=== PATIENT | male | born 1980 | race Caucasian/White ===

== ENCOUNTER 2018-10-12 08:05 | Emergency (ER) | payer BC ==
--- NOTE | 2018-10-12 08:41 | EDM.PDOC ---
ED HPI GENERAL MEDICAL PROBLEM - General Chief Complaint: ENT Problem Stated Complaint: SWOLLEN THROAT Time Seen by Provider: 10/12/18 08:22 Source of Information: Reports: Patient, RN Notes Reviewed - History of Present Illness INITIAL COMMENTS - FREE TEXT/NARRATIVE: 38-year-old male has been having some left lower jaw and dental discomfort for the past 2 or 3 days. States he awakened this morning with sore throat swelling of his left lower jaw area of his mouth and also under the left side of his tongue. He has had no nasal or sinus congestion. He is not coughing. It is painful for him to swallow. Tonsils previously removed. Throat Pain Score (Numeric/FACES): 5 - Related Data Allergies Allergy/AdvReac Type Severity Reaction Status Date / Time No Known Allergies Allergy Verified 10/12/18 08:11 Home Meds: Home Meds Amoxicillin/Potassium Clav [Augmentin 875-125 Tablet] 1 each PO BID #14 tablet 10/12/18 [Rx] Hydrocodone/Acetaminophen [[place] 5-325 Tablet] 1 each PO Q6HR PRN #14 tablet [Rx] Venlafaxine [Effexor XR] 75 mg PO DAILY 10/12/18 [History] Past Medical History Genitourinary History: Reports: Renal Calculus - Past Surgical History HEENT Surgical History: Reports: Tonsillectomy Social & Family History - Tobacco Use Smoking Status *Q: Never Smoker Second Hand Smoke Exposure: No - Caffeine Use Caffeine Use: Reports: Coffee, Energy Drinks, Soda, Tea - Recreational Drug Use Recreational Drug Use: No ED ROS ENT - Review of Systems Review Of Systems: See Below Constitutional: Reports: Chills (Mild). Denies: Fever HEENT: Reports: Dental Pain (Left lower posterior molar), Throat Pain. Denies: Sinus Problem Respiratory: Denies: Shortness of Breath, Cough Cardiovascular: Denies: Chest Pain GI/Abdominal: Denies: Nausea, Vomiting Musculoskeletal: Denies: Neck Pain Skin: Denies: Rash, Erythema Neurological: Reports: No Symptoms ED EXAM, ENT - Physical Exam Exam: See Below General Appearance: Alert, No Apparent Distress Eye Exam: Bilateral Eye: PERRL Ears: Normal External Exam Nose: Normal Inspection Mouth/Throat: Dental Pain (Mild tenderness to percussion left lower posterior molar no visible swelling at this time, no visible drainage, there is mild swelling of the soft tissue anterior to the left lower and anterior mouth under the tongue, nontender. No focal abscess visible or palpable.). No: Pharyngeal Erythema, Throat Swelling, Tongue Swelling Head: Facial Swelling (There is very mild swelling of the left lower jaw area of his face, no warmth or erythema, nontender) Neck: Non-Tender, Lymphadenopathy (L) (Mild) Cardiovascular: Regular Rate, Rhythm Neurological: Alert, Oriented, No Motor/Sensory Deficits Skin: Warm, Dry, Normal Color, No Rash Course - Vital Signs Last Recorded V/S: Last Vital Signs Temp 97.4 F 10/12/18 08:15 Pulse 86 10/12/18 08:15 Resp 12 10/12/18 08:15 BP 145/109 H 10/12/18 08:15 Pulse Ox 99 10/12/18 08:15 Departure - Departure Time of Disposition: 08:39 Disposition: Home, Self-Care 01 Clinical Impression: Infection of mouth Pharyngitis Qualifiers: Pharyngitis/tonsillitis etiology: unspecified etiology Qualified Code(s): J02.9 - Acute pharyngitis, unspecified - Discharge Information Prescriptions: Hydrocodone/Acetaminophen [[place] 5-325 Tablet] 1 each PO Q6HR PRN #14 tablet PRN Reason: Pain Amoxicillin/Potassium Clav [Augmentin 875-125 Tablet] 1 each PO BID #14 tablet Instructions: Pharyngitis, [id number] Referrals: Mary Anne Singh MD [Primary Care Provider] - Forms: ED Department Discharge Additional Instructions: Augmentin 875 mg twice daily for 1 week or until gone, take that with food in about 12 hours apart each day. Start probiotic as discussed and take that twice daily. You may alternate Tylenol and ibuprofen as needed for mild to moderate discomfort or take hydrocodone if needed for more severe pain. Do not take Tylenol and hydrocodone at the same time, do not drive or work when taking hydrocodone. See your dentist tomorrow if possible or next available appointment. Return to ED as needed if symptoms worsening in any way.
== END 2018-10-12 09:14 | disposition home or self-care (01) ==
LOC: JD.ED 08:05
DX: K04.7 Periapical abscess without sinus (principal); J02.9 Acute pharyngitis, unspecified; Z79.899 Other long term (current) drug therapy
CPT/HCPCS: 99282; 99283

== ENCOUNTER 2018-10-13 14:09 | Emergency (ER) | payer BC ==
[2018-10-13] MEDS ORDERED: Sodium Chloride 0.9% 10 ML Syringe FLUSH PRN (14:34)
[2018-10-13] MEDS ORDERED: cefTRIAXone 2 GM Vial IV ONE (14:35)
[2018-10-13] MEDS ORDERED: Dexamethasone 10 MG/ML SDV IV ONE (14:35)
[2018-10-13] MEDS ORDERED: Ondansetron 4 MG/2 ML SDV IVPUSH ONE (14:36)
[2018-10-13] MEDS ORDERED: cefTRIAXone 2 GM in Sodium Chloride 0.9% 100 ML IV STA (14:39)
[2018-10-13] MEDS ORDERED: Sodium Chloride 0.9% 1,000 ML IV SCH (14:45)
[2018-10-13] MEDS ORDERED: HYDROmorphone 0.5 MG/0.5 ML Syringe IVPUSH ONE (15:28)
--- NOTE | 2018-10-13 15:29 | EDM.PDOC ---
ED HPI GENERAL MEDICAL PROBLEM - General Chief Complaint: General Stated Complaint: SIDE OF FACE SWOLLEN Time Seen by Provider: 10/13/18 14:14 Source of Information: Reports: Patient, RN Notes Reviewed - History of Present Illness INITIAL COMMENTS - FREE TEXT/NARRATIVE: 38 y/o male presents to ER with cc left facial pain. He reports the pain started 4 days ago and has increased in intensity. He states he was seen 2 days ago and was started on antibiotic and pain medication. He reports the pain mediation is not working, he has taken a total of 3 antibiotics. He reports having a growth under his tongue that seems to be getting larger. He reports the is unable to eat much due to the pain. Nothing makes it better and it is worse when he tries to eat. He denies fever, or chills. He states he has a appointment with a dentist in 2 days. He is accompanied by his . He appears to be uncomfortable his pain is 8/10. He denies any difficulty swallowing or breathing. Onset Date: 10/10/18 Onset Time: 09:00 Duration: Getting Worse Location: Reports: Face Quality: Reports: Throbbing Severity: Moderate Improves with: Reports: None Worsens with: Reports: Eating Associated Symptoms: Denies: Cough, Fever/Chills, Loss of Appetite, Nausea/ Vomiting, Shortness of Breath, Weakness Treatments ROLLER PNEUMATIC: Reports: Acetaminophen, NSAIDS, Other (see below) Other Treatments ROLLER PNEUMATIC: [place] Oral/Mouth Pain Score (Numeric/FACES): 10 - Related Data Allergies Allergy/AdvReac Type Severity Reaction Status Date / Time No Known Allergies Allergy Verified 10/13/18 14:18 Home Meds: Home Meds Amoxicillin/Potassium Clav [Augmentin 875-125 Tablet] 1 each PO BID #14 tablet 10/12/18 [Rx] Hydrocodone/Acetaminophen [[place] 5-325 Tablet] 1 each PO Q6HR PRN #14 tablet [Rx] Venlafaxine [Effexor XR] 75 mg PO DAILY 10/12/18 [History] oxyCODONE HCl/Acetaminophen [Percocet 7.5-325 mg Tablet] 1 each PO Q6HR PRN 4 Days #12 tablet 10/13/18 [Rx] Past Medical History Genitourinary History: Reports: Renal Calculus - Past Surgical History HEENT Surgical History: Reports: Oral Surgery, Tonsillectomy Social & Family History - Tobacco Use Smoking Status *Q: Current Every Day Smoker Years of Tobacco use: 20 Packs/Tins Daily: 0.5 - Caffeine Use Caffeine Use: Reports: Coffee, Energy Drinks, Soda, Tea - Recreational Drug Use Recreational Drug Use: No ED ROS GENERAL - Review of Systems Review Of Systems: See Below Constitutional: Denies: Fever, Chills HEENT: Reports: Other (left facial swelling and left lower molar pain. Growth under tongue) Respiratory: Denies: Shortness of Breath Cardiovascular: Denies: Chest Pain Endocrine: Reports: Fatigue GI/Abdominal: Reports: No Symptoms : Reports: No Symptoms Musculoskeletal: Denies: Neck Pain Skin: Reports: No Symptoms Neurological: Reports: No Symptoms Psychiatric: Reports: No Symptoms Hematologic/Lymphatic: Reports: No Symptoms Immunologic: Reports: No Symptoms ED EXAM, GENERAL - Physical Exam Exam: See Below Exam Limited By: No Limitations General Appearance: Alert, WD/WN, No Apparent Distress Throat/Mouth: Normal Lips, Normal Oropharynx, Normal Voice, No Airway Compromise , Other (growth under tongue at the base. left lower molar pain, no gingivitis noted. left facial swelling noted. ) Neck: Normal Inspection, Supple, Non-Tender, Lymphadenopathy (L) Respiratory/Chest: No Respiratory Distress, Lungs Clear, Normal Breath Sounds, No Accessory Muscle Use, Chest Non-Tender Cardiovascular: Normal Peripheral Pulses, Regular Rate, Rhythm, No Edema, No Gallop, No JVD, No Murmur, No Rub Neurological: Alert, Oriented, CN II-XII Intact, Normal Cognition, Normal Gait Psychiatric: Normal Affect, Normal Mood Skin Exam: Warm, Dry, Intact, Normal Color, No Rash Lymphatic: Adenopathy (left) Course - Vital Signs Last Recorded V/S: Last Vital Signs Temp 98.1 F 10/13/18 14:16 Pulse 112 H 10/13/18 14:16 Resp 18 10/13/18 14:16 BP 169/114 H 10/13/18 14:16 Pulse Ox 100 10/13/18 14:16 - Orders/Labs/Meds Orders: Active Orders 24 hr Category Date Time Status Sodium Chloride 0.9% [Normal Saline] 1,000 ml Med 10/13/18 14:45 Active IV ASDIRECTED Sodium Chloride 0.9% [Saline Flush] Med 10/13/18 14:34 Active 10 ml FLUSH ASDIRECTED PRN Saline Lock Insert [OM.PC] Routine Oth 10/13/18 14:34 Ordered Medication Orders Sodium Chloride (Normal Saline) 1,000 mls @ 999 mls/hr IV ASDIRECTED UVALDO Last Admin: 10/13/18 14:48 Dose: 999 mls/hr Sodium Chloride (Saline Flush) 10 ml FLUSH ASDIRECTED PRN PRN Reason: Keep Vein Open Last Admin: 10/13/18 14:54 Dose: 10 ml Meds: Medications Generic Name Dose Route Start Last Admin Trade Name Freq PRN Reason Stop Dose Admin Sodium Chloride 1,000 mls @ 999 mls/hr 10/13/18 14:45 10/13/18 14:48 Normal Saline IV 999 mls/hr ASDIRECTED UVALDO Administration Sodium Chloride 10 ml 10/13/18 14:34 10/13/18 14:54 Saline Flush FLUSH 10 ml ASDIRECTED PRN Administration Keep Vein Open Discontinued Medications Generic Name Dose Route Start Last Admin Trade Name Freq PRN Reason Stop Dose Admin Dexamethasone 10 mg 10/13/18 14:35 10/13/18 14:52 Dexamethasone IV 10/13/18 14:36 10 mg ONETIME ONE Administration Hydromorphone HCl 1 mg 10/13/18 15:28 10/13/18 15:35 Dilaudid IVPUSH 10/13/18 15:29 1 mg ONETIME ONE Administration Ceftriaxone Sodium 2 gm/ 100 mls @ 200 mls/hr 10/13/18 14:39 10/13/18 14:53 Sodium Chloride IV 10/13/18 15:08 200 mls/hr ONETIME STA Administration Morphine Sulfate 4 mg 10/13/18 14:35 10/13/18 14:50 Morphine IV 10/13/18 14:36 4 mg NOW STA Administration Ondansetron HCl 4 mg 10/13/18 14:36 10/13/18 14:49 Zofran IVPUSH 10/13/18 14:37 4 mg ONETIME ONE Administration - Re-Assessments/Exams Free Text/Narrative Re-Assessment/Exam: 10/13/18 15:28 continues to have pain after receiving Morphine and Decadron. I will medicate with Dilaudid. 10/13/18 16:23 He is resting comfortably. Reports relief after receiving Dilaudid. I will discharge home with instructions to monitor growth under tongue which I feel maybe possible clogged salivary gland vs oral cancer. Instructed to follow up with dentist as scheduled in 2 days. I will send home with a small amount of Percocet for pain. I instructed him not to take this medication and drink, drive or operate machinery. He verbalized understanding and is comfortable with plan for discharge. He is stable at time of discharge. Instructed to return to the ER for any new or acute worsening symptoms. Departure - Departure Time of Disposition: 16:31 Disposition: Home, Self-Care 01 Condition: Good Clinical Impression: Pain, dental, Cervical adenopathy - Discharge Information *PRESCRIPTION DRUG MONITORING PROGRAM REVIEWED*: Not Applicable *COPY OF PRESCRIPTION DRUG MONITORING REPORT IN PATIENT RAFI: Not Applicable Prescriptions: oxyCODONE HCl/Acetaminophen [Percocet 7.5-325 mg Tablet] 1 each PO Q6HR PRN 4 Days #12 tablet PRN Reason: dental pain Referrals: Mary Anne Singh MD [Primary Care Provider] - Forms: ED Department Discharge Additional Instructions: You have been diagnosis with dental pain and abnormal growth under your tongue. Follow up with your dentist as scheduled in 2 days. Monitor your tongue growth it this get bigger you should follow up with a ENT. Use Magnesium Citrate for constipation as needed. Follow up with your PCP. Return to the ER for any new or acute worsening symptoms. - My Orders Last 24 Hours: My Active Orders 10/13/18 14:34 Sodium Chloride 0.9% [Saline Flush] 10 ml FLUSH ASDIRECTED PRN Saline Lock Insert [OM.PC] Routine 10/13/18 14:45 Sodium Chloride 0.9% [Normal Saline] 1,000 ml IV ASDIRECTED - Assessment/Plan Last 24 Hours: My Active Orders 10/13/18 14:34 Sodium Chloride 0.9% [Saline Flush] 10 ml FLUSH ASDIRECTED PRN Saline Lock Insert [OM.PC] Routine 10/13/18 14:45 Sodium Chloride 0.9% [Normal Saline] 1,000 ml IV ASDIRECTED
== END 2018-10-13 16:43 | disposition home or self-care (01) ==
LOC: JD.ED 14:09
DX: K08.89 Other specified disorders of teeth and supporting structures (principal); R59.0 Localized enlarged lymph nodes; F17.210 Nicotine dependence, cigarettes, uncomplicated; Z79.899 Other long term (current) drug therapy
CPT/HCPCS: 96361; 96365; 96375; 99283; J0696; J1100; J1170; J2270; J2405; J7030; J7040; 99284